=== PATIENT | female | born 1955 | race Caucasian/White ===

== ENCOUNTER 2017-03-16 00:38 | Emergency (ER) | payer BC ==
[~2017-03-16 00:38] MED LIST: ATENOLO PO; GLIPIZIDE10 M PO; LANTI SQ; ZES20 PO
[2017-03-16 01:47] LABS: CALCIUM 8.3 mg/dL (8.5-10.1); CARBON DIOXIDE 22.7 mmol/L (21-32); CHLORIDE SERUM 101 mmol/L (98-107); CREATININE SERUM 0.5 mg/dL (0.6-1.0); GFR1 > 60 mL/min; GLUCOSE SERUM 121 mg/dL (74-106); POTASSIUM SERUM 3.6 mmol/L (3.5-5.1); SODIUM SERUM 135 mmol/L (136-145)
[2017-03-16 01:50] LABS: BASOPHIL % 0.3 % (0-2); PLATELET COUNT 233 x10^3mcL (130-400)
[2017-03-16 01:52] LABS: ALBUMIN 3.7 g/dL (3.4-5.0); ALKALINE PHOSPHATASE 85 U/L (46-116); ALT/SGPT 74 U/L (14-59); AMYLASE 28 U/L (25-115); AST/SGOT 54 U/L (15-37); BILIRUBIN TOTAL 0.34 mg/dL (0.20-1.00); LIPASE 50 IU/L (73-393); TOTAL PROTEIN, SERUM 7.6 g/dL (6.4-8.2)
[2017-03-16 01:59] LABS: RED CELL DISTRIBUTION WIDTH 15.1 % (11.5-14.5)
[2017-03-16 04:06] VITALS: BP 128/64
== END 2017-03-16 04:06 | disposition home or self-care (01) ==
LOC: ED 00:38
PROVIDERS: Emergency Medicine
DX: R10.13 Epigastric pain (principal); R11.10 Vomiting, unspecified; R19.7 Diarrhea, unspecified; E11.9 Type 2 diabetes mellitus without complications; I10 Essential (primary) hypertension; Z88.6 Allergy status to analgesic agent
CPT/HCPCS: J2270; J2405; J3010; J7030

== ENCOUNTER 2017-06-09 01:36 | Emergency (ER) | payer BC ==
[2017-06-09 04:38] VITALS: BP 174/96
== END 2017-06-09 04:38 | disposition home or self-care (01) ==
LOC: ED 01:36
DX: S42.291A Other displaced fracture of upper end of right humerus, initial encounter for closed fracture (principal); M25.521 Pain in right elbow; I10 Essential (primary) hypertension; E11.9 Type 2 diabetes mellitus without complications; Z88.6 Allergy status to analgesic agent; Z86.79 Personal history of other diseases of the circulatory system; W18.30XA Fall on same level, unspecified, initial encounter; Y93.89 Activity, other specified; Y99.8 Other external cause status; Y92.89 Other specified places as the place of occurrence of the external cause
CPT/HCPCS: J2270

== ENCOUNTER → 2018-01-19 | Outpatient (CLI) | payer OTHER | END | disposition home or self-care (01) | LOC: MA 01-18 09:00 | PROC: BH02ZZZ Plain Radiography of Bilateral Breasts (ICD-10-PCS; principal; 2018-01-19) | DX: Z12.31 Encounter for screening mammogram for malignant neoplasm of breast (principal) | CPT/HCPCS: 77067 ==

== ENCOUNTER 2019-01-23 04:17 | Emergency (ER) | payer BC ==
[~2019-01-23] VITALS: Ht 152.4 cm; Wt 77.1 kg
[2019-01-23 04:19] VITALS: Ht 152.4 cm; Wt 77.1 kg
--- NOTE | 2019-01-23 04:23 | NUR ---
PT BIB FAMILY FOR C/O RT ARM PAIN. PT STS THAT SHE FELL X5 DAYS AGE AND WENT TO AN URGENT CARE AND WAS DX WITH A RADIAL FRACTURE, PT WAS PLACED IN A SPLINT AND SENT HOME. PT IS SEEN WITH RIGHT HAND IN SPLINT, RT HAND IS SWOLLEN WITH 2+ EDEMA. PT HAS LIMITED MOVEMENT OF FINGERS ON THE RIGHT HAND, AND DOES NOT HAVE SENSATION. RADIAL PULSES NOTED. SCATTERED BRUISING NOTED ON UPPER RIGHT ARM NEAR SHOULDER, PT CANNOT RECALL HOW THOSE GOT THERE. PT IS A/O X4. PT RESPS ARE EU. PT IS ABLE TO AMBULATE WITH A STEADY GAIT. PT REPORTS A 10/10 PAIN. PT STS SHE TOOK [place] BUT HAD NO RELIEF. PT IS IN DISTRESS DUE TO PAIN
--- NOTE | 2019-01-23 04:59 | NUR ---
MSE COMPLETED BY DR COWAN
--- NOTE | 2019-01-23 05:01 | NUR ---
PORTABLE XRAY AT BEDSIDE
--- NOTE | 2019-01-23 06:10 | NUR ---
DR COWAN AT BEDSIDE TO DISCUSS PLAN OF CARE WITH PT
--- NOTE | 2019-01-23 06:53 | NUR ---
MEDICATED PT PER EMAR ORDERS.
--- NOTE | 2019-01-23 06:53 | NUR ---
DR COWAN AT BEDSIDE TO DISCUSS PLAN OF CARE WITH PT
--- NOTE | 2019-01-23 07:18 | NUR ---
PT RESTING IN ED GURNEY. PT HAS AT BEDSIDE. PT IS A/O X4. PT RESPS ARE E/U. COMFORT MEASURES ARE IN PLACE. MILD DISTRESS NOTED DUE TO PAIN. WILL NOTIFY
[2019-01-23 07:19] LABS: BASOPHIL % 0.3 % (0-2); CALCIUM 9.1 mg/dL (8.5-10.1); CARBON DIOXIDE 28.1 mmol/L (21-32); CHLORIDE SERUM 106 mmol/L (98-107); CREATININE SERUM 0.6 mg/dL (0.6-1.0); GFR1 > 60 mL/min; GLUCOSE SERUM 109 mg/dL (74-106); PLATELET COUNT 276 x10^3mcL (130-400); SODIUM SERUM 144 mmol/L (136-145)
[2019-01-23 07:35] LABS: RED CELL DISTRIBUTION WIDTH 15.6 % (11.5-14.5)
[2019-01-23] MEDS ORDERED: AMBIEN5 MG (08:32)
[2019-01-23] MEDS ORDERED: MIRTAZAPINE7.5 M1 (08:33)
[2019-01-23] MEDS ORDERED: LANTUS SOLOS100 U/M1 (08:34)
--- NOTE | 2019-01-23 08:43 | NUR ---
GAVE PT REPORT TO ANGELIQUE ON MED SRUG FLOOR TO ASSUME PRIMARY CARE OF PT ONCE PT IS ON MED SURG FLOOR
--- NOTE | 2019-01-23 09:08 | NUR ---
PT LAYING ON GURNEY IN POSITION OF COMFORT. NO S/S OF DISTRESS. RESP E/U. WILL CONTINUE TO MONITOR.
--- NOTE | 2019-01-23 09:54 | NUR ---
PT TAKEN FOR CT SCAN
[2019-01-23 10:13] LABS: microscopic required? YES; urine erythrocyte NEGATIVE (NEGATIVE)
--- NOTE | 2019-01-23 10:20 | NUR ---
SPOKE W/ . STS HE IS UPSET THAT WE HAVE TO DO SO MAY SCANS ON HIS . HE WOULD LIKE TO SPEAK WITH A DOCTOR. STS SHE WAS NOT IN THIS MUCH PAIN WHEN SHE CAME IN. TOLD IT IS IMPORTANT THAT THE DOCTOR GETS DIFFERENT ANGLES IN THE XRAY AND CT SCANS TO BE SURE THEY ARE ABLE TO DX THE PROBLEM. SAW BOWDEN MADE AWARE.
--- NOTE | 2019-01-23 11:02 | NUR ---
PT MEDICATED PER ORDER. PT VERBALIZED UNDERSTANDING OF MEDICATION. SEE EMAR FOR DETAILS.
--- NOTE | 2019-01-23 12:56 | NUR ---
PT LAYING ON GURNEY IN POSITION OF COMFORT. PT STS THAT SHE WOULD LIKE TO GO HOME BECAUSE SHE IS UNCOMFORTABLE. AT BEDSIDE EXPLAINING THE IMPORTANCE OF STAYING. MD NOTIFIED. COMFORT MEASURES IMPLEMENTED. WILL CONTINUE TO MONITOR.
--- NOTE | 2019-01-23 13:06 | NUR ---
REPORT GIVEN TO REDDY RN TO ASSUME CARE OF PT
--- NOTE | 2019-01-23 13:15 | NUR ---
DR. MORILLO HERE, AWARE DR. HARMON WILL NOT ACCEPT PT & THAT PT NEEDS TO BE TRANSFERRED SOMEWHERE W/ [facility]TH[facility] THAT WILL ACCEPT PT'S TYPE OF INJURY.
--- NOTE | 2019-01-23 13:22 | NUR ---
PT LAYING ON GURNEY ON POSITION OF COMFORT. PT IS A&OX4. PT C/O PAIN 09/07. AT BEDSIDE. PT IN NAD. BREATHING EVEN AND UNLABORED. NO SWELLING NOTED TO RIGHT FINGERS, CAP REFILL WNL, SKIN WARM TO TOUCH. PT IS ABLE TO MOVE DIGITS ON R HAND. WILL CONTINUE TO MONITOR.
--- NOTE | 2019-01-23 13:58 | NUR ---
MEDICATED FOR PAIN. PT AWAKE AND ALERT. BREATHING EVEN UNLABORED. PT REPOSITIONED FOR COMFORT WITH ASSISTANCE OF LEE EMT. PT STATES DECREASE IN PAIN AFTER REPOSITIONING. + CM. AT BEDSIDE. WAITNG DISPOSITION AT THIS TIME.
--- NOTE | 2019-01-23 15:54 | NUR ---
REPORT CALLED TO ANAHI SPRING AT [facility]
--- NOTE | 2019-01-23 16:33 | NUR ---
PT A&OX4, PT IN NAD. BREATHING EVEN AND UNLABORED. SPEAKING FULL CLEAR SENTENCES. NO SWELLING NOTED TO RIGHT DIGITS. PT MAINTAINS ROM OF DIGITS. CAP REFILL WNL. SKIN WARM TO TOUCH.
[2019-01-23 17:04] VITALS: BP 167/82
== END 2019-01-23 16:40 | disposition short-term general hospital (02) ==
LOC: ED 04:17 → MU 07:43
PROVIDERS: Emergency Medicine
PROC: 2W3AX1Z Immobilization of Right Upper Arm using Splint (ICD-10-PCS; principal; 2019-01-23)
PROC: BP2 Imaging, Non-Axial Upper Bones, Computerized Tomography (CT Scan) (ICD-10-PCS; 2019-01-23)
PROC: 3E023NZ Introduction of Analgesics, Hypnotics, Sedatives into Muscle, Percutaneous Approach (ICD-10-PCS; 2019-01-23)
PROC: 3E033GC Introduction of Other Therapeutic Substance into Peripheral Vein, Percutaneous Approach (ICD-10-PCS; 2019-01-23)
DX: S42.401A Unspecified fracture of lower end of right humerus, initial encounter for closed fracture (principal); E11.9 Type 2 diabetes mellitus without complications; I10 Essential (primary) hypertension; E66.9 Obesity, unspecified; Z68.33 Body mass index [BMI] 33.0-33.9, adult; W18.30XA Fall on same level, unspecified, initial encounter; Y92.009 Unspecified place in unspecified non-institutional (private) residence as the place of occurrence of the external cause
CPT/HCPCS: 82962; J2270; J3010; J3490

== ENCOUNTER 2019-07-22 02:59 | Emergency (ER) | payer BC ==
[~2019-07-22] VITALS: Ht 152.4 cm; Wt 79.0 kg
[~2019-07-22 02:59] MED LIST changes: +AMBIEN5 MG; +LANTUS SOLOS100 U/M1; +MIRTAZAPINE7.5 M1
[2019-07-22 03:10] VITALS: Ht 152.4 cm; Wt 79.0 kg
[2019-07-22 06:32] VITALS: BP 149/68
== END 2019-07-22 06:32 | disposition home or self-care (01) ==
LOC: ED 02:59
DX: R25.2 Cramp and spasm (principal); M79.662 Pain in left lower leg; M79.661 Pain in right lower leg; E11.9 Type 2 diabetes mellitus without complications; I10 Essential (primary) hypertension; Z88.6 Allergy status to analgesic agent
CPT/HCPCS: J3010